=== PATIENT | female | born 1995 | race Caucasian/White ===

== ENCOUNTER 2019-09-16 21:13 | Emergency (ER) | payer BC ==
[~2019-09-16] VITALS: Ht 170.2 cm; Wt 70.5 kg
[2019-09-16 21:45] VITALS: Ht 170.2 cm; Wt 70.5 kg
[2019-09-16] MEDS ORDERED: VOLTAREN75 MG PO (23:28)
[2019-09-16 23:45] VITALS: BP 126/79
== END 2019-09-16 23:45 | disposition home or self-care (01) ==
LOC: D.ER 21:13
DX: S63.257A Unspecified dislocation of left little finger, initial encounter (principal); S63.287A Dislocation of proximal interphalangeal joint of left little finger, initial encounter; X58.XXXA Exposure to other specified factors, initial encounter

== ENCOUNTER → 2019-12-22 09:44 | Outpatient (CLI) | payer BC ==
[2019-09-16 21:45] VITALS: BMI 24.3
[~2019-12-22 09:44] MED LIST: VOLTAREN75 MG PO
== END | disposition home or self-care (01) ==
LOC: D.CT 09:44
PROVIDERS: ATTEND Clinical Nurse Specialist Family Health
DX: M79.645 Pain in left finger(s) (principal)